=== PATIENT | male | born 2005 | race Caucasian/White ===

== ENCOUNTER 2024-09-08 14:03 | Emergency (ER) | payer BC, SELFPAY ==
[2024-09-08 14:06] VITALS: BP 127/72
--- NOTE | 2024-09-08 15:35 | ED.GENMED ---
History of Present Illness
<Musa Chan MD, Resident - Last Filed: 09/08/24 17:29>
General
Chief Complaint: Post Operative Problem(s)
Source: patient and family
Exam Limitations: none
Time Seen by Provider: 09/08/24 15:11
Nursing documentation reviewed up to this point in time: agreed with
History of Present Illness
History of Present Illness:
This is a 19-year-old male with no known past medical history, not on any medication presenting today with complaints of abdominal pain. He had a laparoscopic appendectomy on 09/02/2024 in [place]; reportedly it was acute without complication.
Reports the pain has 6/10, sharp, unsure of aggravating or relieving factors. He was recovering well however today he developed abdominal pain mostly in the middle and left lower abdomen, experienced chills, nausea and vomiting, diaphoresis and 1
episode of watery stool. Denies any documented fevers. Reports no sick contacts. Last night he ate [employer] chicken and pizza last time after the surgery and show his symptoms are related to food. Denies any chest pain, denies trouble breathing,
denies any headache, denies any weakness.
Past History
<Musa Chan MD, Resident - Last Filed: 09/08/24 17:29>
Past History
ED Past Medical History: None
ED Past Surgical History: Appendectomy
Social History
Tobacco: Non-smoker
Alcohol: Occasional
Drug: None
Living: with family
Family History
Family History: Other (Not contributory)
Review of Systems
<Musa Chan MD, Resident - Last Filed: 09/08/24 17:29>
Review of Systems
Constitutional: Reports chills; Denies fever
EENT: Denies sore throat
Respiratory: Denies cough
Cardiac: Reports diaphoresis; Denies chest pain
ABD/GI: Reports abdominal pain, nausea and vomiting
: Denies dysuria or frequency
Musculoskeletal: Denies joint pain
Skin: Denies itching
Neurological: Denies dizzy or headache
Endocrine: Denies polyuria
Hematologic/Lymphatic: Denies bleeding
Phy Exam
<Musa Chan MD, Resident - Last Filed: 09/08/24 17:29>
General Physical Exam
General Presentation: no apparent distress
General age: appears stated age
General Skin: warm
General Habitus: normal
General Mental: alert
General Hydration: appears well hydrated
Cardiovascular Exam
Cardiovascular Exam: regular rate/rhythm and no murmur
Pulmonary Exam
Pulmonary Exam: lungs clear, no respiratory distress and no crackles
Gastrointestinal Exam
Gastrointestinal Exam: normal bowel sounds, soft, non distended, rebound and tender (Epigastric and left lower quadrant)
Neurological Exam
Neurological Exam: alert and oriented x3
Musculoskeletal Exam
Musculoskeletal Exam: full ROM
Psychiatric Exam
Psychiatric Exam: normal mood/affect
Course
<Musa Chan MD, Resident - Last Filed: 09/08/24 17:29>
Orders/Labs/Results
Orders:
Orders
09/08/24 15:34
CT Abd/pelvis W Iv Cont Urgent
Comment:
Reason For Exam: recent appy, LLQ pain and vomiting
0.9% Sodium Chloride 1000 ml [Nss] 1,000 ml IV BOLUS
Ketorolac [Toradol] 30 mg IV NOW STA
Ondansetron Injectable [Zofran] 4 mg IV NOW STA
09/08/24 15:40
Complete Blood Count/With Diff Urgent
Comprehensive Metabolic Panel Urgent
Lipase Urgent
Abnormal Lab Results
09/08/24
15:40
WBC 12.6 H 10^3/uL
(4.8-10.8)
Plt Count 128 L 10^3/uL
(130-400)
Absolute Neuts (auto) 11.2 H 10^3/uL
(1.4-6.5)
Absolute Lymphs (auto) 0.5 L 10^3/uL
(1.2-3.4)
Absolute Monos (auto) 0.8 H 10^3/uL
(0.1-0.6)
Neutrophils % 89.1 H %
(42.2-75.2)
Lymphocytes % 3.6 L %
(20.5-51.1)
Chloride 108 H mmol/L
(98-107)
BUN 21 H mg/dl
(9-20)
Calcium 10.3 H mg/dl
(8.4-10.2)
Total Protein 8.3 H g/dl
(6.3-8.2)
Albumin 5.3 H g/dl
(3.5-5.0)
09/08/24 15:40
09/08/24 15:40
Vital Signs
Initial and Last Documented VS:
Initial Vital Signs
Temp Pulse Resp BP Pulse Ox
98.5 F 87 18 127/72 100
09/08/24 14:06 09/08/24 14:06 09/08/24 14:06 09/08/24 14:06 09/08/24 14:06
Last Documented Vital Signs
Temp Pulse Resp BP Pulse Ox
98.5 F 87 18 127/72 99
09/08/24 14:06 09/08/24 14:06 09/08/24 14:06 09/08/24 14:06 09/08/24 15:45
<Blayne Mcclendon, DO - Last Filed: 09/08/24 15:52>
Orders/Labs/Results
Orders:
Orders
09/08/24 15:34
CT Abd/pelvis W Iv Cont Urgent
Comment:
Reason For Exam: recent appy, LLQ pain and vomiting
0.9% Sodium Chloride 1000 ml [Nss] 1,000 ml IV BOLUS
Ketorolac [Toradol] 30 mg IV NOW STA
Ondansetron Injectable [Zofran] 4 mg IV NOW STA
09/08/24 15:40
Complete Blood Count/With Diff Urgent
Comprehensive Metabolic Panel Urgent
Lipase Urgent
Abnormal Lab Results
09/08/24
15:40
WBC 12.6 H 10^3/uL
(4.8-10.8)
Plt Count 128 L 10^3/uL
(130-400)
Absolute Neuts (auto) 11.2 H 10^3/uL
(1.4-6.5)
Absolute Lymphs (auto) 0.5 L 10^3/uL
(1.2-3.4)
Absolute Monos (auto) 0.8 H 10^3/uL
(0.1-0.6)
Neutrophils % 89.1 H %
(42.2-75.2)
Lymphocytes % 3.6 L %
(20.5-51.1)
Chloride 108 H mmol/L
(98-107)
BUN 21 H mg/dl
(9-20)
Calcium 10.3 H mg/dl
(8.4-10.2)
Total Protein 8.3 H g/dl
(6.3-8.2)
Albumin 5.3 H g/dl
(3.5-5.0)
09/08/24 15:40
09/08/24 15:40
Vital Signs
Initial and Last Documented VS:
Initial Vital Signs
Temp Pulse Resp BP Pulse Ox
98.5 F 87 18 127/72 100
09/08/24 14:06 09/08/24 14:06 09/08/24 14:06 09/08/24 14:06 09/08/24 14:06
Last Documented Vital Signs
Temp Pulse Resp BP Pulse Ox
98.5 F 87 18 127/72 99
09/08/24 14:06 09/08/24 14:06 09/08/24 14:06 09/08/24 14:06 09/08/24 15:45
<Musa Chan MD, Resident - Last Filed: 09/08/24 17:29>
MDM/Problems Addressed
Differential Diagnosis Includes:
Enteritis vs intra-abdominal abscess vs less likely pancreatitis vs less likely renal colic vs unlikely biliary colic vs unlikely UTI
MDM/Problems Addressed:
Check CBC, CMP, lipase
Check CTA abdomen with IV contrast
IV fluid 1 L bolus, IV Zofran IV Toradol
update: CBC with mildly elevated WBC to 12.6. Mild thrombocytopenia with platelets of 128 corrected calcium within normal limits mild elevation of BUN. Awaiting CT.
update:
A few small foci of gas in the right hemiabdomen may be extraluminal, but findings are favored to be postoperative given that the patient is 6 days status post appendectomy. No well-defined fluid collection or significant inflammation appreciated by
CT.
Slightly prominent fluid-filled small bowel loops in the central to lower abdomen possibly reflecting an enteritis or mild adynamic ileus.
Shared decision with the patient for discharge home. No indication for antibiotics or additional imaging. Patient and her mom agree with the plan and voices understanding. Advised to return to the emergency room if he develop any unbearable pain,
intractable nausea vomiting, any other worrisome symptoms. Will send a short prescription of Zofran to use as needed for nausea.
<Musa Chan MD, Resident - Last Filed: 09/08/24 17:29>
*Pulse Oximetry
SaO2: 100
Oxygen Mode of Delivery: Room air
Patient hypoxic: no
*Critical Care Note
Total Time (30-74mins, 75-104mins- exclusive of procedures): Not Applicable
ED Attending Note
<Musa Chan MD, Resident - Last Filed: 09/08/24 17:29>
-
Portions of this chart may have been created with voice recognition software.� Occasional wrong word or��sound alike� substitutions may have occurred due to the inherent limitations of voice recognition software.
<Blayne Mcclendon, DO - Last Filed: 09/08/24 15:52>
ED Attending Note
Patient seen and examined by attending physician: Yes
I performed a history and physical exam of patient and discussed management with resident, I reviewed resident's note and agree with documented findings and plan of care.: Yes
ED Attending Note:
I have seen and evaluated the patient with a [id number] encounter. I have spoken to the resident and involved in the medical history, the physical exam, medical decision making.
Evaluation and management service: agree unless noted differently below.
Results interpretation: agree unless noted differently below.
Focused HPI: 19-year-old male presenting with left lower quadrant abdominal pain. Patient had uncomplicated appendectomy about a week ago at an outside hospital. He was improving and doing well postsurgically. However, he is now developing left
lower quadrant pain with vomiting and diarrhea. He denies fever
Physical exam: Sitting bed comfortably. Postsurgical incisions are clean and intact. Very mild left lower quadrant pain
Medical Decision Making: Will repeat CT looking for evidence of postsurgical complication. If he provides a stool sample, will check for C. difficile. Will provide fluids and pain relief. We discussed the possibility of a viral gastroenteritis
that he contracted in the hospital but will search for postsurgical complications
Discharge Plan
Departure
Patient Disposition: Home (Routine Discharge)
Date of Disposition: 09/08/24
Time of Disposition: 17:25
Patient with high blood pressure during this ER visit?: No
Condition: Fair
Discharge Problem:
Gastroenteritis
Instructions: Viral gastroenteritis in adults
Prescriptions:
New
ondansetron 4 mg tablet,disintegrating
4 mg PO TIDPRN PRN (Reason: nausea/vomiting) Qty: 10 0RF
No Action
bismuth subsalicylate [Pepto-Bismol] 262 mg/15 mL Suspension
524 mg PO DAILYPRN PRN (Reason: upset stomache)
ibuprofen 200 mg Tablet
400 mg PO DAILYPRN PRN (Reason: mild pain)
Magnesium Complex
500 mg PO HS
Rx Instructions:
contains magnesium oxide, magnesium citrate, magnesium glycinate
[place] Paleo Deep Sleep
1 cap PO HS
Rx Instructions:
L-Theanine 200mg
Lemon balm 150mg
Passion flower 150mg
Valerian extract 100mg
Referrals:
Siddhartha Burnett IV, DO [Family Provider, Family Practice] - Follow up in 1 week
Activity Restrictions/Additional Instructions:
You were seen in the [facility] emergency department with concerns of abdominal pain. While you were in the hospital we performed blood work including complete blood count which showed mild elevation of WBCs, complete metabolic panel which
showed mild elevation of BUN likely due to dehydration. Lipase was within normal limit CAT scan of your abdomen pelvis showed A few small foci of gas in the right hemiabdomen may be extraluminal, but findings are favored to be postoperative given
that the patient is 6 days status post appendectomy. No well-defined fluid collection or significant inflammation appreciated by CT.
Slightly prominent fluid-filled small bowel loops in the central to lower abdomen possibly reflecting an enteritis or mild adynamic ileus.
No indication for antibiotics. Zofran prescription was sent to use as needed for nausea. Please return to the emergency department if she develop any unbearable pain, intractable nausea vomiting, fever or chills or any other worrisome symptoms.
Interventions
Interventions:
*Risk Screen - Suicide Last Done: 09/08/24 14:06
*General Assessment Last Done: 09/08/24 14:06
*Neglect/Abuse Screening Last Done: 09/08/24 14:06
*ED- Fall Risk Assessment Last Done: 09/08/24 16:00
*ED COVID-19 Vaccine History Last Done: 09/08/24 16:00
Discharge Date and Time
Print Language: YAKUT
[2024-09-08 15:39] VITALS: BMI 24.6
[2024-09-08] MEDS: TORADOL 30 MG IV (15:42)
[2024-09-08] MEDS: ZOFRAN 4 MG IV (15:43)
[2024-09-08] MEDS: NSS 1000 IV (15:43)
[2024-09-08 15:47] LABS: Hematocrit 43.7 % (39.0-52.0); Hemoglobin 15.2 g/dL (13.0-18.0); Mean Corp Hgb Conc. 34.8 g/dL (33.0-37.0); Mean Corpuscular Volume 82.6 fL (80.0-94.0); Nucleated Red Blood Cells % 0 % (-); Platelet Count 128 10^3/uL (130-400); Red Cell Dist. Width 12.3 % (11.5-14.5)
[2024-09-08 16:10] LABS: ALT (SGPT) 25 U/L (0-50); AST (SGOT) 22 U/L (17-59); Albumin 5.3 g/dl (3.5-5.0); Alkaline Phosphatase 69 U/L (38-126); Blood Urea Nitrogen 21 mg/dl (9-20); Calcium 10.3 mg/dl (8.4-10.2); Carbon Dioxide 22 mmol/L (22-30); Chloride 108 mmol/L (98-107); Estimated Creatinine Clearance > 125 ml/min; Glucose 96 mg/dl (70-99); Lipase 53 U/L (23-300); Potassium 4.2 mmol/L (3.5-5.1); Sodium 139 mmol/L (135-145); Total Protein 8.3 g/dl (6.3-8.2); eGFR > 60.00
[2024-09-08 17:34] VITALS: BP 143/69
== END 2024-09-08 17:45 | disposition home or self-care (01) ==
LOC: EMR 14:03
PROVIDERS: EMERGENCY PHYSICIAN Student in an Organized Health Care Education/Training Program; FAMILY PHYSICIAN Family Medicine
DX: K52.9 Noninfective gastroenteritis and colitis, unspecified (principal); R61 Generalized hyperhidrosis; R11.2 Nausea with vomiting, unspecified; D69.6 Thrombocytopenia, unspecified; Z98.890 Other specified postprocedural states; Z90.49 Acquired absence of other specified parts of digestive tract
CPT/HCPCS: 99284; 96375; 96361; 96374; 74177; 80053; 83690; 85025; Q9967